=== PATIENT | male | born 1965 | race Caucasian/White ===

== ENCOUNTER 2020-05-03 18:26 | Inpatient (IN) ==
[2020-05-03] MEDS ORDERED: SODIUM CHLORIDE 0.9% 1,000 ML IV STA (18:52)
[2020-05-03] MEDS ORDERED: ALUM/MAG/SIMETH/LIDO VISC 1:1 30 ML BOTTLE PO ONE (19:22)
[2020-05-03] MEDS ORDERED: ALUM/MAG/SIMETH/LIDO VISC 1:1 30 ML BOTTLE PO STA (19:30)
[2020-05-03 19:40] LABS: Basophils # 0.1 10*3/uL (0.0-0.2); Basophils % 0.4 % (0.0-0.8); Eosinophils # 0.1 10*3/uL (0.0-0.87); Eosinophils % 0.7 % (0.00-10.9); Hematocrit 49.1 VOL% (42.0-52.0); Hemoglobin 15.4 GM/DL (14.0-18.0); Immature Granulocytes % 4.5 %; Immature Granulocytes Absolute 0.79 #; Lymphocytes # 1.5 10*3/uL (1.4-4.0); Lymphocytes % 8.3 % (21.2-54.2); Mean Corpuscular HGB Conc 31.4 GM/DL (32-36); Mean Corpuscular Volume 80.6 FL (87-102); Mean Platelet Volume 8.7 FL (9.6-12.0); Monocytes % 8.3 % (1.7-12.7); NRBC # 0.02 10*3/uL; Neutrophils % 77.8 % (38.7-73.9); Platelet Count 188 T/CUMM (130-400); Red Blood Count 6.09 MC/CUMM (3.8-5.5); Red Cell Distribution Width 17.5 % (9.3-17.3); White Blood Count 17.8 T/CUMM (4-12)
[2020-05-03 19:53] LABS: Albumin 2.8 G/DL (3.4-5.0); Bilirubin,Total 0.7 MG/DL (0.2-1.0); Calcium 8.6 MG/DL (8.5-10.1); Osmolality,Calculated 277.8 MOS/KG (273-304); Total Protein 6.2 G/DL (6.4-8.3)
[2020-05-03] MEDS ORDERED: KETOROLAC 30 MG/1 ML VIAL ONE (20:29)
[2020-05-03] MEDS ORDERED: KETOROLAC 30 MG/1 ML VIAL IV STA (20:32)
[2020-05-03] MEDS: SODIUM CHLORIDE 0.9% 1,000 ML IV SCH (22:18)
[2020-05-03] MEDS: ENOXAPARIN 40 MG/0.4 ML SYRINGE SUBCUT SCH (22:18)
[2020-05-03] MEDS: DOCUSATE SODIUM 100 MG CAPSULE PO SCH (22:18)
[2020-05-03 23:43] LABS: Eosinophils 1 % (0-10); Lymphocytes 18 % (20-55); Segmented Neutrophils 80 % (50-85); Total Cells Counted 100
[2020-05-03 23:44] LABS: Reactive Lymphocytes Slight
[2020-05-03 23:45] LABS: Microcytosis Slight; Platelet Estimate Decreased; Polychromasia Slight
[2020-05-04] MEDS ORDERED: KETOROLAC 15 MG/1 ML VIAL IV SCH (04:30)
[2020-05-04] MEDS: SODIUM CHLORIDE 0.9% 1,000 ML IV SCH ×3 (06:03→22:25)
[2020-05-04 06:19] LABS: Basophils # 0.1 10*3/uL (0.0-0.2); Basophils % 0.9 % (0.0-0.8); Eosinophils # 0.2 10*3/uL (0.0-0.87); Eosinophils % 1.2 % (0.00-10.9); Hematocrit 48.4 VOL% (42.0-52.0); Immature Granulocytes % 4.4 %; Immature Granulocytes Absolute 0.54 #; Lymphocytes # 1.4 10*3/uL (1.4-4.0); Lymphocytes % 11.4 % (21.2-54.2); Mean Corpuscular Volume 81.6 FL (87-102); Mean Platelet Volume 9.9 FL (9.6-12.0); Monocytes % 10.3 % (1.7-12.7); NRBC # 0.02 10*3/uL; Neutrophils % 71.8 % (38.7-73.9); Platelet Count 153 T/CUMM (130-400); Red Blood Count 5.93 MC/CUMM (3.8-5.5); Red Cell Distribution Width 17.2 % (9.3-17.3); White Blood Count 12.2 T/CUMM (4-12)
[2020-05-04 06:51] LABS: Albumin 2.3 G/DL (3.4-5.0); Calcium 8.1 MG/DL (8.5-10.1); Osmolality,Calculated 275.8 MOS/KG (273-304); Total Protein 5.5 G/DL (6.4-8.3)
[2020-05-04] MEDS ORDERED: ZALEPLON 5 MG CAPSULE PO PRN (08:17)
[2020-05-04] MEDS: LOSARTAN 50 MG TABLET PO SCH (08:30)
[2020-05-04] MEDS: oxyCODONE/ACETAMINOPHEN 5-325 MG TABLET PO PRN ×2 (08:30→20:13)
[2020-05-04] MEDS: PANTOPRAZOLE 40 MG TABLET PO SCH (08:30)
[2020-05-04] MEDS: DOCUSATE SODIUM 100 MG CAPSULE PO SCH ×2 (08:30→20:13)
[2020-05-04] MEDS: ACETAMINOPHEN 325 MG TABLET PO PRN ×2 (08:30→18:40)
[2020-05-04 08:36] LABS: Band Neutrophils 2 % (0-10); Eosinophils 3 % (0-10); Lymphocytes 10 % (20-55); Metamyelocytes 3 %; Platelet Estimate Normal; Segmented Neutrophils 71 % (50-85); Total Cells Counted 100
[2020-05-04 08:37] LABS: Toxic Granulation 1+
[2020-05-04] MEDS ORDERED: INFLUENZA VIRUS VACCINE 0.5 ML SYRINGE IM ONE (09:00)
[2020-05-04] MEDS: DEXTROMETHORPHAN ER 6 MG/ML 90 ML/BOTTLE PO PRN ×2 (09:53→20:13)
[2020-05-04] MEDS: ASPIRIN EC 81 MG TABLET PO SCH (10:25)
[2020-05-04] MEDS: MORPHINE 4 MG/1 ML VIAL IV PRN ×2 (10:25→18:40)
[2020-05-04] MEDS: METOPROLOL TARTRATE 25 MG TABLET PO SCH ×2 (12:13→20:13)
[2020-05-04] MEDS: ONDANSETRON 4 MG/2 ML VIAL IV PRN (18:40)
[2020-05-04] MEDS: ENOXAPARIN 40 MG/0.4 ML SYRINGE SUBCUT SCH (20:13)
[2020-05-05] MEDS: MORPHINE 4 MG/1 ML VIAL IV PRN ×2 (00:12→04:30)
[2020-05-05] MEDS: ONDANSETRON 4 MG/2 ML VIAL IV PRN (00:42)
[2020-05-05] MEDS: oxyCODONE/ACETAMINOPHEN 5-325 MG TABLET PO PRN (03:14)
[2020-05-05 05:58] LABS: Calcium 8.5 MG/DL (8.5-10.1); Osmolality,Calculated 283.4 MOS/KG (273-304)
[2020-05-05 07:05] LABS: Basophils # 0.1 10*3/uL (0.0-0.2); Eosinophils # 0.3 10*3/uL (0.0-0.87); Eosinophils % 3.2 % (0.00-10.9); Hematocrit 47.4 VOL% (42.0-52.0); Hemoglobin 14.5 GM/DL (14.0-18.0); Immature Granulocytes % 4.8 %; Immature Granulocytes Absolute 0.42 #; Lymphocytes # 1.5 10*3/uL (1.4-4.0); Mean Corpuscular HGB Conc 30.6 GM/DL (32-36); Mean Corpuscular Volume 83.3 FL (87-102); Mean Platelet Volume 8.9 FL (9.6-12.0); Monocytes % 11.4 % (1.7-12.7); Neutrophils % 62.6 % (38.7-73.9); Platelet Count 172 T/CUMM (130-400); Red Blood Count 5.69 MC/CUMM (3.8-5.5); Red Cell Distribution Width 17.6 % (9.3-17.3); White Blood Count 8.8 T/CUMM (4-12)
[2020-05-05] MEDS: PANTOPRAZOLE 40 MG TABLET PO SCH (08:13)
[2020-05-05] MEDS: DOCUSATE SODIUM 100 MG CAPSULE PO SCH (08:13)
[2020-05-05] MEDS: ASPIRIN EC 81 MG TABLET PO SCH (08:13)
[2020-05-05] MEDS: METOPROLOL TARTRATE 25 MG TABLET PO SCH (08:14)
[2020-05-05] MEDS: LOSARTAN 50 MG TABLET PO SCH (08:14)
[2020-05-05] MEDS: ACETAMINOPHEN 325 MG TABLET PO PRN (08:14)
[2020-05-05 11:40] VITALS: BP 121/78
== END 2020-05-05 11:48 | disposition home or self-care (01) | DRG 177 ==
LOC: N.ED 18:26 → N.EDINP 20:48 → N.2E 21:45
PROVIDERS: ADMIT Family Medicine; ATTEND Family Medicine

== ENCOUNTER 2021-09-02 19:46 | Inpatient (IN) ==
[2021-09-02] MEDS ORDERED: methylPREDNISolone SOD SUC 125 MG/2 ML VIAL IV STA (20:20)
[2021-09-02] MEDS ORDERED: HYDROmorphone 1 MG/1 ML SYRINGE IV STA ×2 (20:20→22:14)
[2021-09-02] MEDS ORDERED: METHOCARBAMOL 1,000 MG/10 ML VIAL IV STA (20:20)
[2021-09-02] MEDS ORDERED: KETOROLAC 30 MG/1 ML VIAL IV STA (20:20)
[2021-09-02] MEDS ORDERED: ONDANSETRON 4 MG/2 ML VIAL IV STA (20:20)
[2021-09-02] MEDS ORDERED: FUROSEMIDE 100 MG/10 ML VIAL IV STA (20:20)
[2021-09-02] MEDS ORDERED: ALBUTEROL/IPRATROPIUM 3 ML NEB RESP TX STA (20:20)
[2021-09-02 21:20] LABS: Basophils # 0.1 10*3/uL (0.0-0.2); Basophils % 0.5 % (0.0-0.8); Eosinophils % 0.1 % (0.00-10.9); Hematocrit 44.1 VOL% (42.0-52.0); Hemoglobin 14.1 GM/DL (14.0-18.0); Immature Granulocytes % 4.4 %; Immature Granulocytes Absolute 0.76 #; Lymphocytes # 1.7 10*3/uL (1.4-4.0); Lymphocytes % 9.6 % (21.2-54.2); Mean Corpuscular Volume 88.7 FL (87-102); Mean Platelet Volume 9.5 FL (9.6-12.0); Monocytes # 1.6 10*3/uL (0.11-0.8); Monocytes % 9.5 % (1.7-12.7); NRBC # 0.03 10*3/uL; Neutrophils % 75.9 % (38.7-73.9); Platelet Count 243 T/CUMM (130-400); Red Blood Count 4.97 MC/CUMM (3.8-5.5); Red Cell Distribution Width 14.1 % (9.3-17.3); White Blood Count 17.2 T/CUMM (4-12)
[2021-09-02 21:29] LABS: Bilirubin,Urine Negative (Negative); Blood, Urine Negative (Negative); Glucose,Urine (UA) Negative (Negative); Ketones,Urine Negative (Negative); Nitrite,Urine Negative (Negative); Protein,Urine Negative (Negative); Urine Appearance Clear (Clear); Urine Color Yellow (Yellow); Urine Urobilinogen 0.2 eU/dL (<2.0); Urine pH 6.5 (4.5-8.0)
[2021-09-02 21:44] LABS: Alanine Aminotransferase 39 U/L (16-61); Albumin 3.3 G/DL (3.4-5.0); Alkaline Phosphatase 58 U/L (45-117); Aspartate Amino Transferase 25 U/L (0-37); Blood Urea Nitrogen 40 MG/DL (7-18); Calcium 8.9 MG/DL (8.5-10.1); Carbon Dioxide 27 MMOL/L (21-32); Chloride 107 MMOL/L (98-107); Glucose 113 MG/DL (74-106); Potassium 4.1 MMOL/L (3.5-5.1); Sodium 143 MMOL/L (136-145)
[2021-09-02 21:45] LABS: Band Neutrophils 1 % (0-10); Lymphocytes 13 % (20-55); Myelocytes 1 %; Total Cells Counted 100
[2021-09-02 21:47] LABS: Platelet Estimate Increased; Polychromasia Slight
[2021-09-02] MEDS ORDERED: SODIUM CHLORIDE 0.9% 1,000 ML IV STA (22:06)
[2021-09-02] MEDS ORDERED: MAGNESIUM SULF RIDER 2 GM/50 ML PREMIX IV STA (22:06)
[2021-09-02] MEDS ORDERED: ACETAMINOPHEN 325 MG TABLET PO PRN (23:44)
[2021-09-03] MEDS: ENOXAPARIN 40 MG/0.4 ML SYRINGE SUBCUT SCH (00:30)
[2021-09-03] MEDS: HYDROmorphone 1 MG/1 ML SYRINGE IV PRN ×5 (00:34→15:52)
[2021-09-03] MEDS: SODIUM CHLORIDE 0.9% 1,000 ML IV SCH ×3 (00:34→15:53)
[2021-09-03] MEDS: ALBUTEROL/IPRATROPIUM 3 ML NEB RESP TX SCH ×7 (00:41→23:05)
[2021-09-03] MEDS: methylPREDNISolone SOD SUC 40 MG/1 ML VIAL IV SCH ×3 (04:05→21:03)
[2021-09-03 05:06] LABS: Basophils # 0.1 10*3/uL (0.0-0.2); Basophils % 0.5 % (0.0-0.8); Hemoglobin 14.2 GM/DL (14.0-18.0); Immature Granulocytes Absolute 0.71 #; Lymphocytes # 1.3 10*3/uL (1.4-4.0); Lymphocytes % 7.4 % (21.2-54.2); Mean Corpuscular HGB Conc 32.3 GM/DL (32-36); Mean Corpuscular Volume 89.1 FL (87-102); Mean Platelet Volume 9.3 FL (9.6-12.0); Monocytes # 0.5 10*3/uL (0.11-0.8); Monocytes % 2.7 % (1.7-12.7); Neutrophils % 85.4 % (38.7-73.9); Platelet Count 226 T/CUMM (130-400); Red Blood Count 4.94 MC/CUMM (3.8-5.5); Red Cell Distribution Width 14.3 % (9.3-17.3); White Blood Count 17.7 T/CUMM (4-12)
[2021-09-03 05:25] LABS: Band Neutrophils 1 % (0-10); Lymphocytes 5 % (20-55); Total Cells Counted 100
[2021-09-03 05:26] LABS: Platelet Estimate Adequate
[2021-09-03 05:45] LABS: Albumin 3.3 G/DL (3.4-5.0); Bilirubin,Total 0.6 MG/DL (0.20-1.00); Calcium 8.5 MG/DL (8.5-10.1); Osmolality,Calculated 295.3 MOS/KG (273-304); Potassium 4.5 MMOL/L (3.5-5.1); Risk Ratio 4.53; Total Protein 6.5 G/DL (6.4-8.2); VLDL Cholesterol 24.6 MG/DL
[2021-09-03] MEDS ORDERED: TEMAZEPAM 15 MG CAPSULE PO SCH (09:00)
[2021-09-03] MEDS ORDERED: PANTOPRAZOLE 40 MG TABLET PO SCH (09:00)
[2021-09-03] MEDS: ASPIRIN EC 81 MG TABLET PO SCH (09:43)
[2021-09-03] MEDS: SPIRONOLACTONE 25 MG TABLET PO SCH (09:44)
[2021-09-03] MEDS: DICLOFENAC SODIUM 75 MG TABLET PO SCH ×2 (09:44→21:04)
[2021-09-03] MEDS: OMEPRAZOLE ODT 20 MG TABLET PO SCH (09:45)
[2021-09-03] MEDS: DOCUSATE SODIUM 100 MG CAPSULE PO SCH ×2 (09:46→21:04)
[2021-09-03] MEDS: OLMESARTAN 20 MG TABLET PO SCH (09:46)
[2021-09-03] MEDS: MONTELUKAST 10 MG TABLET PO SCH (09:46)
[2021-09-03] MEDS: CHLORTHALIDONE 25 MG TABLET PO SCH (09:46)
[2021-09-03] MEDS: amLODIPine 5 MG TABLET PO SCH (09:46)
[2021-09-03] MEDS: BACLOFEN 10 MG TABLET PO SCH ×3 (09:47→21:04)
[2021-09-03] MEDS ORDERED: TRIAMCINOLONE ACETONIDE 40 MG/1 ML VIAL MISC INJ ONE (12:36)
[2021-09-03] MEDS ORDERED: ROPIVACAINE 0.5% 30 ML VIAL NERVEBLOCK ONE (12:38)
[2021-09-03] MEDS: ONDANSETRON 4 MG/2 ML VIAL IV PRN ×2 (15:58→21:03)
[2021-09-03] MEDS ORDERED: BUPIVACAINE 0.5% 50 ML VIAL MISC INJ ONE (16:28)
[2021-09-03] MEDS ORDERED: KETOROLAC 30 MG/1 ML VIAL IM ONE (16:29)
[2021-09-03] MEDS ORDERED: NALOXONE 0.4 MG/ML VIAL IV PRN (17:28)
[2021-09-03] MEDS: HYDROmorphone PCA 30 MG/30 ML SYRINGE IV SCH (19:20)
[2021-09-04] MEDS: ENOXAPARIN 40 MG/0.4 ML SYRINGE SUBCUT SCH (01:38)
[2021-09-04] MEDS: SODIUM CHLORIDE 0.9% 1,000 ML IV SCH ×3 (01:38→20:12)
[2021-09-04] MEDS: ALBUTEROL/IPRATROPIUM 3 ML NEB RESP TX SCH ×5 (03:58→19:58)
[2021-09-04] MEDS: methylPREDNISolone SOD SUC 40 MG/1 ML VIAL IV SCH ×3 (05:09→16:17)
[2021-09-04 05:17] LABS: Basophils # 0.1 10*3/uL (0.0-0.2); Basophils % 0.3 % (0.0-0.8); Hematocrit 46.7 VOL% (42.0-52.0); Hemoglobin 14.6 GM/DL (14.0-18.0); Immature Granulocytes % 4.5 %; Immature Granulocytes Absolute 1.25 #; Lymphocytes # 1.4 10*3/uL (1.4-4.0); Lymphocytes % 4.9 % (21.2-54.2); Mean Corpuscular HGB Conc 31.3 GM/DL (32-36); Mean Corpuscular Volume 91.6 FL (87-102); Mean Platelet Volume 9.2 FL (9.6-12.0); Monocytes # 2.3 10*3/uL (0.11-0.8); Monocytes % 8.2 % (1.7-12.7); NRBC # 0.02 10*3/uL; Neutrophils % 82.1 % (38.7-73.9); Platelet Count 326 T/CUMM (130-400); Red Cell Distribution Width 14.7 % (9.3-17.3); White Blood Count 27.8 T/CUMM (4-12)
[2021-09-04 05:36] LABS: Band Neutrophils 1 % (0-10); Lymphocytes 7 % (20-55); Platelet Estimate Adequate; Total Cells Counted 100
[2021-09-04 05:43] LABS: Alanine Aminotransferase 39 U/L (16-61); Albumin 3.5 G/DL (3.4-5.0); Alkaline Phosphatase 48 U/L (45-117); Aspartate Amino Transferase 18 U/L (0-37); Blood Urea Nitrogen 60 MG/DL (7-18); Calcium 8.1 MG/DL (8.5-10.1); Carbon Dioxide 26 MMOL/L (21-32); Chloride 107 MMOL/L (98-107); Glucose 144 MG/DL (74-106); Osmolality,Calculated 296.5 MOS/KG (273-304); Potassium 4.6 MMOL/L (3.5-5.1); Sodium 139 MMOL/L (136-145); Total Protein 6.5 G/DL (6.4-8.2)
[2021-09-04] MEDS: PROMETHAZINE 25 MG/1 ML VIAL IM PRN (09:01)
[2021-09-04] MEDS: SPIRONOLACTONE 25 MG TABLET PO SCH (09:02)
[2021-09-04] MEDS: OMEPRAZOLE ODT 20 MG TABLET PO SCH (09:05)
[2021-09-04] MEDS: DOCUSATE SODIUM 100 MG CAPSULE PO SCH ×2 (09:06→20:41)
[2021-09-04] MEDS: amLODIPine 5 MG TABLET PO SCH (09:06)
[2021-09-04] MEDS: OLMESARTAN 20 MG TABLET PO SCH (09:06)
[2021-09-04] MEDS: BACLOFEN 10 MG TABLET PO SCH ×3 (09:06→20:41)
[2021-09-04] MEDS: MONTELUKAST 10 MG TABLET PO SCH (09:06)
[2021-09-04] MEDS: CHLORTHALIDONE 25 MG TABLET PO SCH (09:06)
[2021-09-04] MEDS: ASPIRIN EC 81 MG TABLET PO SCH (09:06)
[2021-09-04] MEDS: DICLOFENAC SODIUM 75 MG TABLET PO SCH (09:07)
[2021-09-04] MEDS: LIDOCAINE 5% PATCH TRANSDERM SCH (09:08)
[2021-09-04] MEDS ORDERED: PANTOPRAZOLE 40 MG VIAL IV ONE (17:37)
[2021-09-04] MEDS: PANTOPRAZOLE 40 MG VIAL IV SCH (17:41)
[2021-09-04] MEDS: TEMAZEPAM 15 MG CAPSULE PO SCH (20:41)
[2021-09-04] MEDS: ONDANSETRON 4 MG/2 ML VIAL IV PRN (21:10)
[2021-09-05] MEDS: ENOXAPARIN 40 MG/0.4 ML SYRINGE SUBCUT SCH (00:06)
[2021-09-05] MEDS: methylPREDNISolone SOD SUC 40 MG/1 ML VIAL IV SCH ×3 (00:06→17:00)
[2021-09-05] MEDS: ALBUTEROL/IPRATROPIUM 3 ML NEB RESP TX SCH ×7 (00:29→23:45)
[2021-09-05] MEDS: SODIUM CHLORIDE 0.9% 1,000 ML IV SCH ×3 (04:28→16:52)
[2021-09-05 04:41] LABS: Basophils % 0.2 % (0.0-0.8); Hematocrit 39.5 VOL% (42.0-52.0); Hemoglobin 12.4 GM/DL (14.0-18.0); Immature Granulocytes % 3.1 %; Immature Granulocytes Absolute 0.48 #; Lymphocytes # 0.5 10*3/uL (1.4-4.0); Lymphocytes % 3.2 % (21.2-54.2); Mean Corpuscular HGB Conc 31.4 GM/DL (32-36); Mean Corpuscular Volume 91.9 FL (87-102); Mean Platelet Volume 9.3 FL (9.6-12.0); Monocytes # 0.5 10*3/uL (0.11-0.8); Monocytes % 3.2 % (1.7-12.7); NRBC # 0.02 10*3/uL; Neutrophils % 90.3 % (38.7-73.9); Platelet Count 228 T/CUMM (130-400); Red Cell Distribution Width 14.8 % (9.3-17.3); White Blood Count 15.5 T/CUMM (4-12)
[2021-09-05 05:05] LABS: Lymphocytes 4 % (20-55); Platelet Estimate Normal; Total Cells Counted 100
[2021-09-05 05:13] LABS: Albumin 2.8 G/DL (3.4-5.0); Bilirubin,Total 0.5 MG/DL (0.20-1.00); Calcium 7.5 MG/DL (8.5-10.1); Osmolality,Calculated 304.8 MOS/KG (273-304); Potassium 4.9 MMOL/L (3.5-5.1); Total Protein 5.4 G/DL (6.4-8.2)
[2021-09-05] MEDS: ONDANSETRON 4 MG/2 ML VIAL IV PRN (07:40)
[2021-09-05] MEDS ORDERED: GLUCAGON 1 MG VIAL IM PRN (09:06)
[2021-09-05] MEDS ORDERED: DEXTROSE 10% 250 ML BAG IV PRN (09:10)
[2021-09-05] MEDS ORDERED: DEXTROMETHORPHAN ER 6 MG/ML 90 ML/BOTTLE PO PRN (09:16)
[2021-09-05] MEDS: PANTOPRAZOLE 40 MG VIAL IV SCH (09:20)
[2021-09-05] MEDS: MONTELUKAST 10 MG TABLET PO SCH (09:21)
[2021-09-05] MEDS: ASPIRIN EC 81 MG TABLET PO SCH (09:21)
[2021-09-05] MEDS: DOCUSATE SODIUM 100 MG CAPSULE PO SCH ×2 (09:21→21:54)
[2021-09-05] MEDS: LIDOCAINE 5% PATCH TRANSDERM SCH (09:23)
[2021-09-05] MEDS: CHLORTHALIDONE 25 MG TABLET PO SCH (09:23)
[2021-09-05] MEDS: BACLOFEN 10 MG TABLET PO SCH ×3 (09:24→22:44)
[2021-09-05] MEDS: amLODIPine 5 MG TABLET PO SCH (09:30)
[2021-09-05] MEDS: MEROPENEM 500 MG in SODIUM CHLORIDE 0.9% 100 ML IV SCH ×2 (11:30→18:28)
[2021-09-05] MEDS: INSULIN REGULAR 100 UNIT/ML SUBCUT SCH ×3 (12:30→22:44)
[2021-09-05] MEDS: PROMETHAZINE 25 MG/1 ML VIAL IM PRN (21:53)
[2021-09-05] MEDS: TEMAZEPAM 15 MG CAPSULE PO SCH (22:00)
[2021-09-05] MEDS: SENNA 8.6 MG TABLET PO SCH (22:00)
[2021-09-06] MEDS: methylPREDNISolone SOD SUC 40 MG/1 ML VIAL IV SCH ×3 (00:40→17:35)
[2021-09-06] MEDS: ENOXAPARIN 40 MG/0.4 ML SYRINGE SUBCUT SCH (00:41)
[2021-09-06] MEDS: MEROPENEM 500 MG in SODIUM CHLORIDE 0.9% 100 ML IV SCH ×3 (01:29→17:35)
[2021-09-06] MEDS: SODIUM CHLORIDE 0.9% 1,000 ML IV SCH ×3 (01:30→17:34)
[2021-09-06] MEDS: ALBUTEROL/IPRATROPIUM 3 ML NEB RESP TX SCH ×6 (03:45→23:45)
[2021-09-06 05:36] LABS: Basophils % 0.3 % (0.0-0.8); Eosinophils # 0.1 10*3/uL (0.0-0.87); Eosinophils % 0.4 % (0.00-10.9); Hematocrit 41.6 VOL% (42.0-52.0); Hemoglobin 12.9 GM/DL (14.0-18.0); Immature Granulocytes % 4.5 %; Lymphocytes # 0.8 10*3/uL (1.4-4.0); Mean Corpuscular Volume 91.8 FL (87-102); Mean Platelet Volume 9.1 FL (9.6-12.0); Monocytes # 1.1 10*3/uL (0.11-0.8); Monocytes % 7.4 % (1.7-12.7); NRBC # 0.02 10*3/uL; Neutrophils % 82.4 % (38.7-73.9); Platelet Count 247 T/CUMM (130-400); Red Blood Count 4.53 MC/CUMM (3.8-5.5); Red Cell Distribution Width 15.1 % (9.3-17.3); White Blood Count 15.5 T/CUMM (4-12)
[2021-09-06 05:53] LABS: Phosphorous 2.7 MG/DL (2.5-4.9); Uric Acid 8.8 MG/DL (3.5-7.2)
[2021-09-06 05:54] LABS: Calcium 8.2 MG/DL (8.5-10.1); Potassium 4.4 MMOL/L (3.5-5.1)
[2021-09-06 06:33] LABS: Band Neutrophils 2 % (0-10); Lymphocytes 6 % (20-55); Platelet Estimate Normal; Total Cells Counted 100
[2021-09-06 06:42] LABS: Albumin 2.9 G/DL (3.4-5.0); Bilirubin,Direct 0.13 MG/DL (0.0-0.20); Bilirubin,Indirect 0.7 MG/DL (0.0-1.0); Bilirubin,Total 0.8 MG/DL (0.20-1.00); Total Protein 5.6 G/DL (6.4-8.2)
[2021-09-06] MEDS ORDERED: LACTULOSE 20 GM/30 ML UDCUP PO ONE (07:42)
[2021-09-06] MEDS: INSULIN REGULAR 100 UNIT/ML SUBCUT SCH ×3 (07:45→17:34)
[2021-09-06] MEDS: HYDROmorphone PCA 30 MG/30 ML SYRINGE IV SCH ×2 (07:45→11:05)
[2021-09-06] MEDS: MONTELUKAST 10 MG TABLET PO SCH (09:35)
[2021-09-06] MEDS: BACLOFEN 10 MG TABLET PO SCH ×3 (09:35→21:50)
[2021-09-06] MEDS: LIDOCAINE 5% PATCH TRANSDERM SCH (09:35)
[2021-09-06] MEDS: PANTOPRAZOLE 40 MG VIAL IV SCH (09:35)
[2021-09-06] MEDS: amLODIPine 5 MG TABLET PO SCH (09:35)
[2021-09-06] MEDS: DOCUSATE SODIUM 100 MG CAPSULE PO SCH ×2 (09:35→21:50)
[2021-09-06] MEDS: ASPIRIN EC 81 MG TABLET PO SCH (09:35)
[2021-09-06] MEDS: SENNA 8.6 MG TABLET PO SCH ×2 (09:35→21:52)
[2021-09-06 17:44] LABS: Microalbum Ur Quant Random 10.7 MG/L (0-20)
[2021-09-06] MEDS: TEMAZEPAM 15 MG CAPSULE PO SCH (21:53)
[2021-09-07] MEDS: INSULIN REGULAR 100 UNIT/ML SUBCUT SCH ×4 (00:24→23:38)
[2021-09-07] MEDS: MEROPENEM 500 MG in SODIUM CHLORIDE 0.9% 100 ML IV SCH ×5 (00:26→23:40)
[2021-09-07] MEDS: methylPREDNISolone SOD SUC 40 MG/1 ML VIAL IV SCH ×3 (01:00→18:30)
[2021-09-07] MEDS: SODIUM CHLORIDE 0.9% 1,000 ML IV SCH ×3 (01:34→18:05)
[2021-09-07] MEDS: ALBUTEROL/IPRATROPIUM 3 ML NEB RESP TX SCH ×6 (03:30→22:57)
[2021-09-07 07:20] LABS: Total Protein (Chem) 5.9 G/DL (6.4-8.3)
[2021-09-07 08:54] LABS: Albumin (SPE) 3.8 G/DL (3.2-5.3); Alpha 1 (SPE) 0.2 G/DL (0.1-0.4); Alpha 1 (SPE) Rel % 2.9 %; Alpha 2 (SPE) 0.8 G/DL (0.4-1.0); Alpha 2 (SPE) Rel % 14.2 %; Beta (SPE) 0.8 G/DL (0.5-1.1); Beta (SPE) Rel % 13.5 %; Gamma (SPE) 0.3 G/DL (0.7-1.7); Gamma (SPE) Rel % 5.4 %
[2021-09-07] MEDS: amLODIPine 5 MG TABLET PO SCH (09:45)
[2021-09-07] MEDS: PANTOPRAZOLE 40 MG VIAL IV SCH (10:10)
[2021-09-07] MEDS: BACLOFEN 10 MG TABLET PO SCH ×3 (10:11→21:18)
[2021-09-07] MEDS: ASPIRIN EC 81 MG TABLET PO SCH (10:11)
[2021-09-07] MEDS: DOCUSATE SODIUM 100 MG CAPSULE PO SCH ×2 (10:11→21:18)
[2021-09-07] MEDS: MONTELUKAST 10 MG TABLET PO SCH (10:12)
[2021-09-07] MEDS: SENNA 8.6 MG TABLET PO SCH ×2 (10:12→21:18)
[2021-09-07] MEDS: POLYETHYLENE GLYCOL POWDER 17 GM PACK PO PRN (10:18)
[2021-09-07] MEDS: LACTATED RINGERS 1,000 ML IV SCH (12:45)
[2021-09-07] MEDS ORDERED: LIDOCAINE 2% 5 ML VIAL ONE (12:53)
[2021-09-07] MEDS ORDERED: propofoL 200 MG/20 ML VIAL IV ONE (12:53)
[2021-09-07] MEDS ORDERED: PHENYLEPHRINE 1 MG/10 ML SYRINGE IV ONE (13:02)
[2021-09-07] MEDS: LIDOCAINE 5% PATCH TRANSDERM SCH (13:22)
[2021-09-07] MEDS: TEMAZEPAM 15 MG CAPSULE PO SCH (21:18)
[2021-09-07] MEDS: PROMETHAZINE 25 MG/1 ML VIAL IM PRN (21:18)
[2021-09-08] MEDS: ENOXAPARIN 40 MG/0.4 ML SYRINGE SUBCUT SCH (00:12)
[2021-09-08] MEDS: methylPREDNISolone SOD SUC 40 MG/1 ML VIAL IV SCH ×3 (01:26→20:42)
[2021-09-08] MEDS: ALBUTEROL/IPRATROPIUM 3 ML NEB RESP TX SCH ×6 (03:36→23:57)
[2021-09-08 05:20] LABS: Basophils # 0.1 10*3/uL (0.0-0.2); Basophils % 0.3 % (0.0-0.8); Hematocrit 41.3 VOL% (42.0-52.0); Hemoglobin 12.7 GM/DL (14.0-18.0); Immature Granulocytes % 4.1 %; Immature Granulocytes Absolute 0.61 #; Lymphocytes # 0.9 10*3/uL (1.4-4.0); Mean Corpuscular HGB Conc 30.8 GM/DL (32-36); Mean Platelet Volume 8.9 FL (9.6-12.0); Monocytes # 0.9 10*3/uL (0.11-0.8); Neutrophils % 83.6 % (38.7-73.9); Platelet Count 204 T/CUMM (130-400); Red Blood Count 4.44 MC/CUMM (3.8-5.5); Red Cell Distribution Width 14.5 % (9.3-17.3); White Blood Count 14.8 T/CUMM (4-12)
[2021-09-08 05:45] LABS: Band Neutrophils 1 % (0-10); Lymphocytes 4 % (20-55); Metamyelocytes 1 %; Promyelocytes 1 %; Total Cells Counted 100
[2021-09-08 05:46] LABS: Microcytosis Slight
[2021-09-08 06:15] LABS: Alanine Aminotransferase 56 U/L (16-61); Albumin 2.5 G/DL (3.4-5.0); Alkaline Phosphatase 40 U/L (45-117); Aspartate Amino Transferase 21 U/L (0-37); Blood Urea Nitrogen 29 MG/DL (7-18); Calcium 8.4 MG/DL (8.5-10.1); Carbon Dioxide 31 MMOL/L (21-32); Chloride 106 MMOL/L (98-107); Glucose 170 MG/DL (74-106); Osmolality,Calculated 288.4 MOS/KG (273-304); Potassium 5.4 MMOL/L (3.5-5.1); Sodium 140 MMOL/L (136-145); Total Protein 5.2 G/DL (6.4-8.2)
[2021-09-08 06:29] LABS: Sedimentation Rate-Westergren 6 MM/HR (0-20)
[2021-09-08] MEDS: SODIUM CHLORIDE 0.9% 1,000 ML IV SCH ×3 (06:44→20:00)
[2021-09-08] MEDS: MEROPENEM 500 MG in SODIUM CHLORIDE 0.9% 100 ML IV SCH ×3 (06:45→20:41)
[2021-09-08] MEDS: MONTELUKAST 10 MG TABLET PO SCH (10:00)
[2021-09-08] MEDS: PANTOPRAZOLE 40 MG VIAL IV SCH (10:00)
[2021-09-08] MEDS: amLODIPine 5 MG TABLET PO SCH (10:00)
[2021-09-08] MEDS: DOCUSATE SODIUM 100 MG CAPSULE PO SCH ×2 (10:00→20:47)
[2021-09-08] MEDS: SENNA 8.6 MG TABLET PO SCH ×2 (10:00→20:47)
[2021-09-08] MEDS: FLUCONAZOLE 200 MG TABLET PO SCH (10:00)
[2021-09-08] MEDS: BACLOFEN 10 MG TABLET PO SCH ×3 (10:00→20:47)
[2021-09-08] MEDS: ASPIRIN EC 81 MG TABLET PO SCH (10:00)
[2021-09-08] MEDS: INSULIN REGULAR 100 UNIT/ML SUBCUT SCH ×4 (11:13→22:26)
[2021-09-08] MEDS: LIDOCAINE 5% PATCH TRANSDERM SCH (11:16)
[2021-09-08] MEDS: LACTATED RINGERS 1,000 ML IV SCH (15:09)
[2021-09-08] MEDS: HYDROmorphone PCA 30 MG/30 ML SYRINGE IV SCH (17:35)
[2021-09-08] MEDS ORDERED: LACTULOSE 20 GM/30 ML UDCUP PO ONE (19:00)
[2021-09-08] MEDS: TEMAZEPAM 15 MG CAPSULE PO SCH (20:47)
[2021-09-08] MEDS: PROMETHAZINE 25 MG/1 ML VIAL IM PRN (20:47)
[2021-09-08] MEDS: guaiFENesin/CODEINE 5 ML LIQUID PO PRN (20:47)
[2021-09-09] MEDS: ENOXAPARIN 40 MG/0.4 ML SYRINGE SUBCUT SCH ×2 (00:03→23:54)
[2021-09-09] MEDS: methylPREDNISolone SOD SUC 40 MG/1 ML VIAL IV SCH ×3 (01:13→17:20)
[2021-09-09] MEDS: ALBUTEROL/IPRATROPIUM 3 ML NEB RESP TX SCH ×6 (04:50→22:00)
[2021-09-09 06:09] LABS: Basophils # 0.1 10*3/uL (0.0-0.2); Basophils % 0.6 % (0.0-0.8); Hematocrit 40.2 VOL% (42.0-52.0); Hemoglobin 12.7 GM/DL (14.0-18.0); Immature Granulocytes % 4.6 %; Immature Granulocytes Absolute 0.77 #; Lymphocytes # 1.2 10*3/uL (1.4-4.0); Lymphocytes % 7.1 % (21.2-54.2); Mean Corpuscular HGB Conc 31.6 GM/DL (32-36); Mean Platelet Volume 9.2 FL (9.6-12.0); Monocytes # 1.1 10*3/uL (0.11-0.8); Monocytes % 6.4 % (1.7-12.7); Neutrophils % 81.3 % (38.7-73.9); Platelet Count 203 T/CUMM (130-400); Red Blood Count 4.42 MC/CUMM (3.8-5.5); Red Cell Distribution Width 14.5 % (9.3-17.3); White Blood Count 16.8 T/CUMM (4-12)
[2021-09-09 06:30] LABS: Calcium 9.1 MG/DL (8.5-10.1); Osmolality,Calculated 284.5 MOS/KG (273-304); Potassium 4.6 MMOL/L (3.5-5.1)
[2021-09-09 06:35] LABS: Hypochromia Slight; Lymphocytes 6 % (20-55); Nucleated Red Blood Cells 1 (0-5); Platelet Estimate Adequate; Total Cells Counted 100
[2021-09-09] MEDS: MEROPENEM 500 MG in SODIUM CHLORIDE 0.9% 100 ML IV SCH ×5 (07:07→22:54)
[2021-09-09] MEDS: INSULIN REGULAR 100 UNIT/ML SUBCUT SCH ×4 (07:30→23:37)
[2021-09-09] MEDS: SENNA 8.6 MG TABLET PO SCH ×2 (10:09→20:48)
[2021-09-09] MEDS: guaiFENesin/CODEINE 5 ML LIQUID PO PRN ×3 (10:09→20:47)
[2021-09-09] MEDS: BACLOFEN 10 MG TABLET PO SCH ×3 (10:09→20:48)
[2021-09-09] MEDS: ASPIRIN EC 81 MG TABLET PO SCH (10:09)
[2021-09-09] MEDS: FLUCONAZOLE 200 MG TABLET PO SCH (10:09)
[2021-09-09] MEDS: DOCUSATE SODIUM 100 MG CAPSULE PO SCH ×2 (10:09→20:48)
[2021-09-09] MEDS: MONTELUKAST 10 MG TABLET PO SCH (10:10)
[2021-09-09] MEDS: amLODIPine 5 MG TABLET PO SCH (10:10)
[2021-09-09] MEDS: PANTOPRAZOLE 40 MG VIAL IV SCH (10:11)
[2021-09-09] MEDS: LIDOCAINE 5% PATCH TRANSDERM SCH (14:20)
[2021-09-09] MEDS: PROMETHAZINE 25 MG/1 ML VIAL IM PRN (14:20)
[2021-09-09] MEDS: LACTATED RINGERS 1,000 ML IV SCH (14:33)
[2021-09-09] MEDS: SODIUM CHLORIDE 0.9% 1,000 ML IV SCH ×2 (14:37→23:52)
[2021-09-09] MEDS: ONDANSETRON 4 MG/2 ML VIAL IV PRN (17:22)
[2021-09-09] MEDS: TEMAZEPAM 15 MG CAPSULE PO SCH (20:47)
[2021-09-09] MEDS: tiZANidine 4 MG TABLET PO SCH (20:48)
[2021-09-09] MEDS: HYDROmorphone PCA 30 MG/30 ML SYRINGE IV SCH (23:52)
[2021-09-10] MEDS: methylPREDNISolone SOD SUC 40 MG/1 ML VIAL IV SCH ×3 (01:31→16:14)
[2021-09-10] MEDS: ALBUTEROL/IPRATROPIUM 3 ML NEB RESP TX SCH ×6 (03:10→23:30)
[2021-09-10 04:11] LABS: Basophils % 0.1 % (0.0-0.8); Hematocrit 44.4 VOL% (42.0-52.0); Hemoglobin 14.1 GM/DL (14.0-18.0); Immature Granulocytes % 4.8 %; Immature Granulocytes Absolute 1.52 #; Lymphocytes # 1.4 10*3/uL (1.4-4.0); Lymphocytes % 4.5 % (21.2-54.2); Mean Corpuscular HGB Conc 31.8 GM/DL (32-36); Mean Corpuscular Volume 90.8 FL (87-102); Mean Platelet Volume 9.1 FL (9.6-12.0); Monocytes # 1.3 10*3/uL (0.11-0.8); Neutrophils % 86.6 % (38.7-73.9); Platelet Count 281 T/CUMM (130-400); Red Blood Count 4.89 MC/CUMM (3.8-5.5); Red Cell Distribution Width 14.5 % (9.3-17.3); White Blood Count 31.7 T/CUMM (4-12)
[2021-09-10 04:33] LABS: Eosinophils 1 % (0-10); Lymphocytes 4 % (20-55); Platelet Estimate Normal; Total Cells Counted 100
[2021-09-10 04:44] LABS: Calcium 9.5 MG/DL (8.5-10.1); Osmolality,Calculated 281.8 MOS/KG (273-304); Potassium 4.4 MMOL/L (3.5-5.1)
[2021-09-10] MEDS: MEROPENEM 500 MG in SODIUM CHLORIDE 0.9% 100 ML IV SCH ×4 (05:13→22:30)
[2021-09-10] MEDS: guaiFENesin/CODEINE 5 ML LIQUID PO PRN ×3 (06:30→16:13)
[2021-09-10] MEDS: HYDROmorphone PCA 30 MG/30 ML SYRINGE IV SCH ×3 (07:15→16:34)
[2021-09-10] MEDS: SODIUM CHLORIDE 0.9% 1,000 ML IV SCH ×3 (07:44→16:12)
[2021-09-10] MEDS: MONTELUKAST 10 MG TABLET PO SCH (08:38)
[2021-09-10] MEDS: amLODIPine 5 MG TABLET PO SCH (08:38)
[2021-09-10] MEDS: ASPIRIN EC 81 MG TABLET PO SCH (08:38)
[2021-09-10] MEDS: FLUCONAZOLE 200 MG TABLET PO SCH (08:39)
[2021-09-10] MEDS: BACLOFEN 10 MG TABLET PO SCH ×3 (08:39→21:26)
[2021-09-10] MEDS: SENNA 8.6 MG TABLET PO SCH ×2 (08:39→21:26)
[2021-09-10] MEDS: DOCUSATE SODIUM 100 MG CAPSULE PO SCH ×2 (08:41→21:25)
[2021-09-10] MEDS: tiZANidine 4 MG TABLET PO SCH ×2 (08:41→21:25)
[2021-09-10] MEDS: LIDOCAINE 5% PATCH TRANSDERM SCH (08:42)
[2021-09-10] MEDS: PANTOPRAZOLE 40 MG VIAL IV SCH (08:43)
[2021-09-10] MEDS: INSULIN REGULAR 100 UNIT/ML SUBCUT SCH ×5 (08:54→23:15)
[2021-09-10] MEDS: LACTATED RINGERS 1,000 ML IV SCH (12:05)
[2021-09-10] MEDS: ONDANSETRON 4 MG/2 ML VIAL IV PRN ×2 (16:20→23:16)
[2021-09-10] MEDS ORDERED: FUROSEMIDE 40 MG/4 ML VIAL IV ONE (17:35)
[2021-09-10] MEDS ORDERED: SODIUM CHLORIDE 0.9% 1,000 ML IV SCH (17:36)
[2021-09-10] MEDS: PROMETHAZINE 25 MG/1 ML VIAL IM PRN (21:26)
[2021-09-10] MEDS: TEMAZEPAM 15 MG CAPSULE PO SCH (21:26)
[2021-09-10] MEDS ORDERED: METOPROLOL TARTRATE 5 MG/5 ML VIAL IV ONE (22:08)
[2021-09-10 22:48] LABS: CKMB % 0.75 %; High Sensitive Troponin I* 10.2 ng/L (0-78)
[2021-09-11 00:15] LABS: Calcium 8.7 MG/DL (8.5-10.1); Potassium 5.1 MMOL/L (3.5-5.1)
[2021-09-11] MEDS: methylPREDNISolone SOD SUC 40 MG/1 ML VIAL IV SCH ×3 (02:45→15:06)
[2021-09-11] MEDS: ALBUTEROL/IPRATROPIUM 3 ML NEB RESP TX SCH ×6 (03:32→23:32)
[2021-09-11] MEDS: MEROPENEM 500 MG in SODIUM CHLORIDE 0.9% 100 ML IV SCH ×3 (05:10→15:21)
[2021-09-11 05:58] LABS: Calcium 9.1 MG/DL (8.5-10.1); Potassium 5.3 MMOL/L (3.5-5.1)
[2021-09-11 06:14] LABS: Basophils % 0.1 % (0.0-0.8); Hematocrit 33.3 VOL% (42.0-52.0); Immature Granulocytes % 8.3 %; Immature Granulocytes Absolute 4.01 #; Lymphocytes # 2.3 10*3/uL (1.4-4.0); Lymphocytes % 4.8 % (21.2-54.2); Mean Corpuscular HGB Conc 31.2 GM/DL (32-36); Mean Corpuscular Volume 92.5 FL (87-102); Mean Platelet Volume 9.4 FL (9.6-12.0); Monocytes % 6.2 % (1.7-12.7); NRBC # 0.24 10*3/uL; Neutrophils % 80.6 % (38.7-73.9); Red Cell Distribution Width 14.6 % (9.3-17.3)
[2021-09-11 06:18] LABS: Hemoglobin 10.4 GM/DL (14.0-18.0); Platelet Count 342 T/CUMM (130-400); White Blood Count 48.3 T/CUMM (4-12)
[2021-09-11 06:31] LABS: Band Neutrophils 9 % (0-10); Lymphocytes 10 % (20-55); Myelocytes 3 %; Nucleated Red Blood Cells 1 (0-5); Platelet Estimate Normal; Total Cells Counted 100
[2021-09-11 06:32] LABS: Anisocytosis 1+
[2021-09-11 06:33] LABS: Burr Cells Few; Macrocytosis Slight
[2021-09-11] MEDS: BACLOFEN 10 MG TABLET PO SCH ×2 (09:24→15:24)
[2021-09-11] MEDS: INSULIN REGULAR 100 UNIT/ML SUBCUT SCH ×4 (09:59→21:49)
[2021-09-11] MEDS ORDERED: ROPIVACAINE 0.5% 30 ML VIAL ONE (10:03)
[2021-09-11] MEDS ORDERED: BUPIVACAINE 0.5% 50 ML VIAL ONE (10:03)
[2021-09-11] MEDS ORDERED: methylPREDNISolone ACETATE 80 MG/1 ML VIAL ONE (10:04)
[2021-09-11] MEDS ORDERED: DEXMEDETOMIDINE 200 MCG/2 ML VIAL ONE (10:35)
[2021-09-11] MEDS ORDERED: KETAMINE 500 MG/10 ML VIAL ONE (10:35)
[2021-09-11] MEDS ORDERED: fentaNYL 100 MCG/2 ML VIAL ONE (11:05)
[2021-09-11] MEDS ORDERED: propofoL 200 MG/20 ML VIAL IV ONE (11:34)
[2021-09-11] MEDS ORDERED: ALBUMIN 5% 0 GM/0 ML VIAL IV ONE (12:00)
[2021-09-11] MEDS ORDERED: ACETAMINOPHEN INJ 1,000 MG/100 ML VIAL IV ONE ×2 (12:00→12:03)
[2021-09-11] MEDS ORDERED: HYDROmorphone 1 MG/1 ML SYRINGE ONE (12:00)
[2021-09-11] MEDS ORDERED: HYDROmorphone 1 MG/1 ML SYRINGE IV ONE ×2 (12:02→17:30)
[2021-09-11] MEDS ORDERED: GABAPENTIN 400 MG CAPSULE ONE (12:03)
[2021-09-11] MEDS ORDERED: GABAPENTIN 400 MG CAPSULE PO ONE (12:05)
[2021-09-11] MEDS ORDERED: NALOXONE 0.4 MG/ML VIAL IV PRN (12:28)
[2021-09-11] MEDS: ONDANSETRON 4 MG/2 ML VIAL IV PRN (13:03)
[2021-09-11] MEDS ORDERED: SODIUM CHLORIDE 0.9% 500 ML IV ONE ×2 (13:18→13:26)
[2021-09-11] MEDS: SODIUM CHLORIDE 0.9% 1,000 ML IV SCH ×3 (14:24→20:20)
[2021-09-11] MEDS: amLODIPine 5 MG TABLET PO SCH (14:26)
[2021-09-11] MEDS: tiZANidine 4 MG TABLET PO SCH (14:26)
[2021-09-11] MEDS: HYDROmorphone PCA 30 MG/30 ML SYRINGE IV SCH ×2 (14:27→20:20)
[2021-09-11] MEDS ORDERED: SODIUM CHLORIDE 0.9% 1,000 ML IV SCH (14:30)
[2021-09-11] MEDS: DOCUSATE SODIUM 100 MG CAPSULE PO SCH ×2 (15:02→22:06)
[2021-09-11] MEDS: MONTELUKAST 10 MG TABLET PO SCH (15:02)
[2021-09-11] MEDS: FLUCONAZOLE 200 MG TABLET PO SCH (15:03)
[2021-09-11] MEDS: SENNA 8.6 MG TABLET PO SCH ×2 (15:03→22:06)
[2021-09-11] MEDS: ASPIRIN EC 81 MG TABLET PO SCH (15:03)
[2021-09-11] MEDS: LIDOCAINE 5% PATCH TRANSDERM SCH (15:04)
[2021-09-11] MEDS: PANTOPRAZOLE 40 MG VIAL IV SCH (15:08)
[2021-09-11] MEDS: guaiFENesin/CODEINE 5 ML LIQUID PO PRN ×2 (16:56→22:06)
[2021-09-11] MEDS: ALBUMIN 25% 25 GM/100 ML VIAL IV SCH (17:16)
[2021-09-11 18:57] LABS: Hematocrit 24.1 VOL% (42.0-52.0); Hemoglobin 7.9 GM/DL (14.0-18.0)
[2021-09-11] MEDS: DORNASE ALFA 2.5 MG/2.5 ML VIAL RESP TX SCH (19:03)
[2021-09-11] MEDS ORDERED: ENOXAPARIN 40 MG/0.4 ML SYRINGE SUBCUT SCH (21:00)
[2021-09-11 21:57] LABS: RBC,Urine 1 /HPF (0-4)
[2021-09-11 21:58] LABS: Bilirubin,Urine Negative (Negative); Blood, Urine Negative (Negative); Glucose,Urine (UA) Negative (Negative); Ketones,Urine Negative (Negative); Nitrite,Urine Negative (Negative); Protein,Urine Negative (Negative); Urine Appearance Clear (Clear); Urine Color Yellow (Yellow); Urine Urobilinogen 0.2 eU/dL (<2.0)
[2021-09-11] MEDS: AMITRIPTYLINE 50 MG TABLET PO SCH (22:05)
[2021-09-11] MEDS: GABAPENTIN 300 MG CAPSULE PO SCH ×2 (22:05)
[2021-09-11] MEDS: TEMAZEPAM 15 MG CAPSULE PO SCH (22:36)
[2021-09-12] MEDS: MEROPENEM 500 MG in SODIUM CHLORIDE 0.9% 100 ML IV SCH ×4 (00:15→23:17)
[2021-09-12] MEDS: ALBUMIN 25% 25 GM/100 ML VIAL IV SCH ×3 (00:49→16:13)
[2021-09-12] MEDS: SODIUM CHLORIDE 0.9% 1,000 ML IV SCH ×2 (02:55→09:30)
[2021-09-12] MEDS: ALBUTEROL/IPRATROPIUM 3 ML NEB RESP TX SCH ×6 (03:23→23:12)
[2021-09-12 03:46] LABS: Basophils # 0.1 10*3/uL (0.0-0.2); Basophils % 0.2 % (0.0-0.8); Hematocrit 25.8 VOL% (42.0-52.0); Hemoglobin 8.3 GM/DL (14.0-18.0); Immature Granulocytes % 6.7 %; Immature Granulocytes Absolute 1.79 #; Lymphocytes # 1.5 10*3/uL (1.4-4.0); Lymphocytes % 5.4 % (21.2-54.2); Mean Corpuscular HGB Conc 32.2 GM/DL (32-36); Mean Corpuscular Volume 89.6 FL (87-102); Mean Platelet Volume 9.1 FL (9.6-12.0); Monocytes # 1.5 10*3/uL (0.11-0.8); Monocytes % 5.5 % (1.7-12.7); NRBC # 0.06 10*3/uL; Neutrophils % 82.2 % (38.7-73.9); Platelet Count 193 T/CUMM (130-400); Red Blood Count 2.88 MC/CUMM (3.8-5.5); Red Cell Distribution Width 14.4 % (9.3-17.3); White Blood Count 26.7 T/CUMM (4-12)
[2021-09-12 04:08] LABS: Lymphocytes 2 % (20-55); Nucleated Red Blood Cells 1 (0-5); Platelet Estimate Adequate; Total Cells Counted 100
[2021-09-12 04:10] LABS: Albumin 2.9 G/DL (3.4-5.0); Bilirubin,Total 0.9 MG/DL (0.20-1.00); Calcium 8.3 MG/DL (8.5-10.1); Potassium 4.6 MMOL/L (3.5-5.1)
[2021-09-12] MEDS: DORNASE ALFA 2.5 MG/2.5 ML VIAL RESP TX SCH ×2 (07:19→19:15)
[2021-09-12] MEDS: INSULIN REGULAR 100 UNIT/ML SUBCUT SCH ×4 (07:33→21:44)
[2021-09-12 09:18] LABS: PT Patient Result 10.9 SECS (10.5-12.0); Partial Thromboplastin Time 25.1 SECS (23.8-32.1)
[2021-09-12] MEDS: FLUCONAZOLE 200 MG TABLET PO SCH (09:53)
[2021-09-12] MEDS: MONTELUKAST 10 MG TABLET PO SCH (09:53)
[2021-09-12] MEDS: AMITRIPTYLINE 50 MG TABLET PO SCH ×2 (09:53→21:28)
[2021-09-12] MEDS: SENNA 8.6 MG TABLET PO SCH ×2 (09:53→21:28)
[2021-09-12] MEDS: GABAPENTIN 300 MG CAPSULE PO SCH ×2 (09:53→21:28)
[2021-09-12] MEDS: DOCUSATE SODIUM 100 MG CAPSULE PO SCH ×2 (09:53→21:28)
[2021-09-12] MEDS: ASPIRIN EC 81 MG TABLET PO SCH (09:53)
[2021-09-12] MEDS: PANTOPRAZOLE 40 MG VIAL IV SCH (09:57)
[2021-09-12] MEDS: POLYETHYLENE GLYCOL POWDER 17 GM PACK PO PRN (09:57)
[2021-09-12] MEDS: LIDOCAINE 5% PATCH TRANSDERM SCH ×2 (10:00→10:03)
[2021-09-12] MEDS: guaiFENesin/CODEINE 5 ML LIQUID PO PRN ×2 (18:16→22:10)
[2021-09-12] MEDS: HYDROmorphone PCA 30 MG/30 ML SYRINGE IV SCH (19:18)
[2021-09-13] MEDS: ALBUMIN 25% 25 GM/100 ML VIAL IV SCH ×3 (01:02→16:29)
[2021-09-13] MEDS: ALBUTEROL/IPRATROPIUM 3 ML NEB RESP TX SCH ×6 (03:26→22:21)
[2021-09-13 04:17] LABS: Basophils % 0.2 % (0.0-0.8); Eosinophils # 0.1 10*3/uL (0.0-0.87); Eosinophils % 0.7 % (0.00-10.9); Hematocrit 23.2 VOL% (42.0-52.0); Hemoglobin 7.3 GM/DL (14.0-18.0); Immature Granulocytes % 6.4 %; Immature Granulocytes Absolute 0.81 #; Lymphocytes # 1.5 10*3/uL (1.4-4.0); Lymphocytes % 12.1 % (21.2-54.2); Mean Corpuscular HGB Conc 31.5 GM/DL (32-36); Mean Corpuscular Volume 93.5 FL (87-102); Mean Platelet Volume 9.1 FL (9.6-12.0); Monocytes % 7.5 % (1.7-12.7); NRBC # 0.13 10*3/uL; Neutrophils % 73.1 % (38.7-73.9); Platelet Count 165 T/CUMM (130-400); Red Blood Count 2.48 MC/CUMM (3.8-5.5); Red Cell Distribution Width 14.9 % (9.3-17.3); White Blood Count 12.7 T/CUMM (4-12)
[2021-09-13 04:30] LABS: Calcium 7.9 MG/DL (8.5-10.1); Osmolality,Calculated 289.3 MOS/KG (273-304); Potassium 4.6 MMOL/L (3.5-5.1)
[2021-09-13 04:35] LABS: Band Neutrophils 3 % (0-10); Eosinophils 2 % (0-10); Hypochromia Slight; Lymphocytes 17 % (20-55); Nucleated Red Blood Cells 3 (0-5); Platelet Estimate Adequate; Total Cells Counted 100
[2021-09-13] MEDS: DORNASE ALFA 2.5 MG/2.5 ML VIAL RESP TX SCH ×2 (07:07→19:20)
[2021-09-13] MEDS ORDERED: FUROSEMIDE 40 MG/4 ML VIAL IV ONE (07:45)
[2021-09-13] MEDS: HYDROmorphone PCA 30 MG/30 ML SYRINGE IV SCH ×2 (09:05→12:36)
[2021-09-13] MEDS: FLUCONAZOLE 200 MG TABLET PO SCH (09:17)
[2021-09-13] MEDS: MONTELUKAST 10 MG TABLET PO SCH (09:17)
[2021-09-13] MEDS: ALPRAZolam 0.25 MG TABLET PO PRN (09:18)
[2021-09-13] MEDS: SENNA 8.6 MG TABLET PO SCH ×2 (09:18→20:24)
[2021-09-13] MEDS: ASPIRIN EC 81 MG TABLET PO SCH (09:18)
[2021-09-13] MEDS: DOCUSATE SODIUM 100 MG CAPSULE PO SCH ×2 (09:18→20:24)
[2021-09-13] MEDS: AMITRIPTYLINE 50 MG TABLET PO SCH ×2 (09:18→20:24)
[2021-09-13] MEDS: GABAPENTIN 300 MG CAPSULE PO SCH ×2 (09:18→20:24)
[2021-09-13] MEDS: MEROPENEM 500 MG in SODIUM CHLORIDE 0.9% 100 ML IV SCH ×3 (09:19→22:32)
[2021-09-13] MEDS: INSULIN REGULAR 100 UNIT/ML SUBCUT SCH ×4 (09:22→20:04)
[2021-09-13] MEDS: PANTOPRAZOLE 40 MG VIAL IV SCH (09:22)
[2021-09-13] MEDS: LIDOCAINE 5% PATCH TRANSDERM SCH (09:28)
[2021-09-13] MEDS: SODIUM CHLORIDE 0.9% 1,000 ML IV SCH (09:36)
[2021-09-13] MEDS ORDERED: LACTULOSE 20 GM/30 ML UDCUP PO ONE (12:00)
[2021-09-13] MEDS ORDERED: METHYLNALTREXONE 12 MG/0.6 ML VIAL SUBCUT ONE (12:30)
[2021-09-13 16:19] LABS: Hematocrit 28.1 VOL% (42.0-52.0)
[2021-09-13] MEDS: guaiFENesin/CODEINE 5 ML LIQUID PO PRN ×2 (16:40→20:24)
[2021-09-13] MEDS ORDERED: ACETAMINOPHEN INJ 1,000 MG/100 ML VIAL IV ONE (18:40)
[2021-09-14] MEDS: ALBUMIN 25% 25 GM/100 ML VIAL IV SCH ×2 (00:30→08:08)
[2021-09-14] MEDS: guaiFENesin/CODEINE 5 ML LIQUID PO PRN ×2 (03:12→21:21)
[2021-09-14] MEDS: ALPRAZolam 0.25 MG TABLET PO PRN (03:26)
[2021-09-14 03:48] LABS: Basophils % 0.3 % (0.0-0.8); Eosinophils # 0.2 10*3/uL (0.0-0.87); Eosinophils % 1.9 % (0.00-10.9); Hematocrit 26.3 VOL% (42.0-52.0); Immature Granulocytes % 5.6 %; Immature Granulocytes Absolute 0.51 #; Lymphocytes # 1.2 10*3/uL (1.4-4.0); Lymphocytes % 12.6 % (21.2-54.2); Mean Corpuscular HGB Conc 30.4 GM/DL (32-36); Mean Platelet Volume 9.4 FL (9.6-12.0); Monocytes # 0.8 10*3/uL (0.11-0.8); Monocytes % 8.3 % (1.7-12.7); NRBC # 0.07 10*3/uL; Neutrophils % 71.3 % (38.7-73.9); Platelet Count 145 T/CUMM (130-400); Red Blood Count 2.74 MC/CUMM (3.8-5.5); White Blood Count 9.2 T/CUMM (4-12)
[2021-09-14] MEDS: ALBUTEROL/IPRATROPIUM 3 ML NEB RESP TX SCH ×6 (04:00→23:50)
[2021-09-14 04:03] LABS: Calcium 8.2 MG/DL (8.5-10.1); Osmolality,Calculated 283.4 MOS/KG (273-304); Potassium 4.2 MMOL/L (3.5-5.1)
[2021-09-14 04:15] LABS: Eosinophils 3 % (0-10); Lymphocytes 21 % (20-55); Platelet Estimate Adequate; Total Cells Counted 100
[2021-09-14 04:16] LABS: Hypochromia Slight; Microcytosis Slight
[2021-09-14] MEDS: MEROPENEM 500 MG in SODIUM CHLORIDE 0.9% 100 ML IV SCH ×3 (05:55→23:20)
[2021-09-14] MEDS: DORNASE ALFA 2.5 MG/2.5 ML VIAL RESP TX SCH ×2 (07:26→19:20)
[2021-09-14] MEDS: INSULIN REGULAR 100 UNIT/ML SUBCUT SCH ×4 (08:06→21:23)
[2021-09-14] MEDS: LIDOCAINE 5% PATCH TRANSDERM SCH (08:07)
[2021-09-14] MEDS: PANTOPRAZOLE 40 MG VIAL IV SCH (08:08)
[2021-09-14] MEDS: FLUCONAZOLE 200 MG TABLET PO SCH (08:08)
[2021-09-14] MEDS: DOCUSATE SODIUM 100 MG CAPSULE PO SCH ×2 (08:09→21:23)
[2021-09-14] MEDS: GABAPENTIN 300 MG CAPSULE PO SCH ×2 (08:09→21:22)
[2021-09-14] MEDS: AMITRIPTYLINE 50 MG TABLET PO SCH ×2 (08:09→21:22)
[2021-09-14] MEDS: ASPIRIN EC 81 MG TABLET PO SCH (08:09)
[2021-09-14] MEDS: MONTELUKAST 10 MG TABLET PO SCH (08:09)
[2021-09-14] MEDS: SENNA 8.6 MG TABLET PO SCH ×2 (08:09→21:22)
[2021-09-14 10:30] LABS: Basophils % 0.1 % (0.0-0.8); Eosinophils # 0.2 10*3/uL (0.0-0.87); Eosinophils % 1.7 % (0.00-10.9); Hematocrit 27.1 VOL% (42.0-52.0); Hemoglobin 8.4 GM/DL (14.0-18.0); Immature Granulocytes Absolute 0.36 #; Lymphocytes # 1.1 10*3/uL (1.4-4.0); Lymphocytes % 12.5 % (21.2-54.2); Mean Corpuscular Volume 95.8 FL (87-102); Mean Platelet Volume 8.9 FL (9.6-12.0); Monocytes # 0.7 10*3/uL (0.11-0.8); Monocytes % 7.7 % (1.7-12.7); NRBC # 0.06 10*3/uL; Platelet Count 140 T/CUMM (130-400); Red Blood Count 2.83 MC/CUMM (3.8-5.5); Red Cell Distribution Width 14.9 % (9.3-17.3); White Blood Count 8.9 T/CUMM (4-12)
[2021-09-14 10:40] LABS: INR 0.9; PT Patient Result 10.3 SECS (10.5-12.0)
[2021-09-14] MEDS ORDERED: SODIUM CHLORIDE 0.9% 1,000 ML IV PRN (11:53)
[2021-09-14] MEDS: HYDROmorphone PCA 30 MG/30 ML SYRINGE IV SCH (13:49)
[2021-09-14] MEDS: SODIUM CHLORIDE 0.9% 1,000 ML IV SCH (13:50)
[2021-09-14] MEDS ORDERED: FUROSEMIDE 40 MG/4 ML VIAL IV PRN (14:00)
[2021-09-14 20:17] LABS: Basophils % 0.4 % (0.0-0.8); Eosinophils # 0.2 10*3/uL (0.0-0.87); Eosinophils % 1.9 % (0.00-10.9); Hematocrit 32.3 VOL% (42.0-52.0); Hemoglobin 10.3 GM/DL (14.0-18.0); Immature Granulocytes % 4.2 %; Immature Granulocytes Absolute 0.44 #; Lymphocytes # 1.1 10*3/uL (1.4-4.0); Lymphocytes % 10.7 % (21.2-54.2); Mean Corpuscular HGB Conc 31.9 GM/DL (32-36); Mean Corpuscular Volume 91.8 FL (87-102); Mean Platelet Volume 9.1 FL (9.6-12.0); Monocytes # 0.7 10*3/uL (0.11-0.8); NRBC # 0.06 10*3/uL; Neutrophils % 75.8 % (38.7-73.9); Platelet Count 141 T/CUMM (130-400); Red Blood Count 3.52 MC/CUMM (3.8-5.5); Red Cell Distribution Width 16.9 % (9.3-17.3); White Blood Count 10.4 T/CUMM (4-12)
[2021-09-14] MEDS: FAMOTIDINE 20 MG/2 ML VIAL IV SCH (21:23)
[2021-09-15] MEDS: ALBUTEROL/IPRATROPIUM 3 ML NEB RESP TX SCH ×5 (03:55→23:04)
[2021-09-15 05:21] LABS: Basophils % 0.3 % (0.0-0.8); Eosinophils # 0.3 10*3/uL (0.0-0.87); Eosinophils % 2.5 % (0.00-10.9); Hematocrit 30.7 VOL% (42.0-52.0); Hemoglobin 9.8 GM/DL (14.0-18.0); Immature Granulocytes % 3.8 %; Immature Granulocytes Absolute 0.37 #; Lymphocytes # 1.1 10*3/uL (1.4-4.0); Lymphocytes % 11.2 % (21.2-54.2); Mean Corpuscular HGB Conc 31.9 GM/DL (32-36); Mean Corpuscular Volume 90.8 FL (87-102); Mean Platelet Volume 9.2 FL (9.6-12.0); Monocytes # 0.8 10*3/uL (0.11-0.8); Monocytes % 7.7 % (1.7-12.7); NRBC # 0.05 10*3/uL; Neutrophils % 74.5 % (38.7-73.9); Platelet Count 139 T/CUMM (130-400); Red Blood Count 3.38 MC/CUMM (3.8-5.5); Red Cell Distribution Width 16.9 % (9.3-17.3); White Blood Count 9.8 T/CUMM (4-12)
[2021-09-15 05:39] LABS: Calcium 8.9 MG/DL (8.5-10.1); Osmolality,Calculated 280.5 MOS/KG (273-304); Potassium 4.1 MMOL/L (3.5-5.1)
[2021-09-15] MEDS: DORNASE ALFA 2.5 MG/2.5 ML VIAL RESP TX SCH ×2 (07:44→19:33)
[2021-09-15] MEDS: MEROPENEM 500 MG in SODIUM CHLORIDE 0.9% 100 ML IV SCH ×3 (07:56→23:44)
[2021-09-15] MEDS: FAMOTIDINE 20 MG/2 ML VIAL IV SCH ×2 (08:01→20:30)
[2021-09-15] MEDS: AMITRIPTYLINE 50 MG TABLET PO SCH ×2 (08:02→20:31)
[2021-09-15] MEDS: MONTELUKAST 10 MG TABLET PO SCH (08:02)
[2021-09-15] MEDS: DOCUSATE SODIUM 100 MG CAPSULE PO SCH ×2 (08:02→20:31)
[2021-09-15] MEDS: ASPIRIN EC 81 MG TABLET PO SCH (08:02)
[2021-09-15] MEDS: FLUCONAZOLE 200 MG TABLET PO SCH (08:03)
[2021-09-15] MEDS: SENNA 8.6 MG TABLET PO SCH ×2 (08:03→20:31)
[2021-09-15] MEDS: GABAPENTIN 300 MG CAPSULE PO SCH ×2 (08:03→20:31)
[2021-09-15] MEDS: INSULIN REGULAR 100 UNIT/ML SUBCUT SCH ×4 (08:42→20:36)
[2021-09-15] MEDS: LIDOCAINE 5% PATCH TRANSDERM SCH (08:42)
[2021-09-15] MEDS ORDERED: FUROSEMIDE 20 MG/2 ML VIAL IV ONE (09:00)
[2021-09-15] MEDS: SODIUM CHLORIDE 0.9% 1,000 ML IV SCH (16:53)
[2021-09-15] MEDS: HYDROmorphone PCA 30 MG/30 ML SYRINGE IV SCH (19:08)
[2021-09-15] MEDS ORDERED: NYSTATIN 500,000 UNIT/5 ML UDCUP SWISH/SWAL SCH (21:00)
[2021-09-15] MEDS: ALPRAZolam 0.25 MG TABLET PO PRN (21:38)
[2021-09-16 04:54] LABS: Basophils % 0.2 % (0.0-0.8); Eosinophils # 0.2 10*3/uL (0.0-0.87); Eosinophils % 2.4 % (0.00-10.9); Hematocrit 32.2 VOL% (42.0-52.0); Immature Granulocytes % 3.1 %; Immature Granulocytes Absolute 0.27 #; Lymphocytes # 0.8 10*3/uL (1.4-4.0); Lymphocytes % 9.5 % (21.2-54.2); Mean Corpuscular HGB Conc 31.1 GM/DL (32-36); Mean Corpuscular Volume 92.5 FL (87-102); Mean Platelet Volume 8.8 FL (9.6-12.0); Monocytes # 0.6 10*3/uL (0.11-0.8); Monocytes % 6.9 % (1.7-12.7); Neutrophils % 77.9 % (38.7-73.9); Platelet Count 123 T/CUMM (130-400); Red Blood Count 3.48 MC/CUMM (3.8-5.5); Red Cell Distribution Width 16.5 % (9.3-17.3); White Blood Count 8.7 T/CUMM (4-12)
[2021-09-16 05:06] LABS: Calcium 7.8 MG/DL (8.5-10.1); Osmolality,Calculated 282.4 MOS/KG (273-304); Potassium 3.8 MMOL/L (3.5-5.1)
[2021-09-16] MEDS: ALBUTEROL/IPRATROPIUM 3 ML NEB RESP TX SCH ×3 (06:42→23:55)
[2021-09-16] MEDS: DORNASE ALFA 2.5 MG/2.5 ML VIAL RESP TX SCH ×2 (06:42→20:02)
[2021-09-16] MEDS: MEROPENEM 500 MG in SODIUM CHLORIDE 0.9% 100 ML IV SCH ×3 (08:25→23:05)
[2021-09-16] MEDS: MONTELUKAST 10 MG TABLET PO SCH (08:26)
[2021-09-16] MEDS: GABAPENTIN 300 MG CAPSULE PO SCH ×2 (08:26→20:39)
[2021-09-16] MEDS: AMITRIPTYLINE 50 MG TABLET PO SCH ×2 (08:27→20:39)
[2021-09-16] MEDS: ASPIRIN EC 81 MG TABLET PO SCH (08:27)
[2021-09-16] MEDS: DOCUSATE SODIUM 100 MG CAPSULE PO SCH ×2 (08:27→20:39)
[2021-09-16] MEDS: INSULIN REGULAR 100 UNIT/ML SUBCUT SCH ×4 (09:26→21:01)
[2021-09-16] MEDS ORDERED: FUROSEMIDE 40 MG/4 ML VIAL IV ONE (09:27)
[2021-09-16] MEDS: LIDOCAINE 5% PATCH TRANSDERM SCH (09:32)
[2021-09-16] MEDS: PANTOPRAZOLE 40 MG TABLET PO SCH (09:54)
[2021-09-16] MEDS: SENNA 8.6 MG TABLET PO SCH ×2 (09:55→20:39)
[2021-09-16] MEDS: guaiFENesin/CODEINE 5 ML LIQUID PO PRN (13:01)
[2021-09-16] MEDS: MYLANTA/LIDO VISC/NYST 180 ML BOTTLE SWISH/SPIT SCH ×3 (13:03→21:02)
[2021-09-16] MEDS: HYDROmorphone PCA 30 MG/30 ML SYRINGE IV SCH (13:06)
[2021-09-17 03:36] LABS: Basophils % 0.3 % (0.0-0.8); Eosinophils # 0.2 10*3/uL (0.0-0.87); Hematocrit 32.2 VOL% (42.0-52.0); Hemoglobin 10.1 GM/DL (14.0-18.0); Immature Granulocytes % 3.4 %; Immature Granulocytes Absolute 0.26 #; Lymphocytes % 12.5 % (21.2-54.2); Mean Corpuscular HGB Conc 31.4 GM/DL (32-36); Mean Corpuscular Volume 91.5 FL (87-102); Mean Platelet Volume 8.9 FL (9.6-12.0); Monocytes # 0.7 10*3/uL (0.11-0.8); Monocytes % 9.2 % (1.7-12.7); Neutrophils % 71.6 % (38.7-73.9); Platelet Count 116 T/CUMM (130-400); Red Blood Count 3.52 MC/CUMM (3.8-5.5); Red Cell Distribution Width 15.9 % (9.3-17.3); White Blood Count 7.7 T/CUMM (4-12)
[2021-09-17 04:02] VITALS: BP 121/74
[2021-09-17 04:05] LABS: Calcium 8.4 MG/DL (8.5-10.1); Osmolality,Calculated 281.5 MOS/KG (273-304); Potassium 3.8 MMOL/L (3.5-5.1)
[2021-09-17] MEDS: MEROPENEM 500 MG in SODIUM CHLORIDE 0.9% 100 ML IV SCH ×3 (06:04→23:19)
[2021-09-17] MEDS: ALBUTEROL/IPRATROPIUM 3 ML NEB RESP TX SCH ×3 (07:35→23:56)
[2021-09-17] MEDS: DORNASE ALFA 2.5 MG/2.5 ML VIAL RESP TX SCH (07:35)
[2021-09-17] MEDS: GABAPENTIN 300 MG CAPSULE PO SCH ×2 (08:11→21:14)
[2021-09-17] MEDS: DOCUSATE SODIUM 100 MG CAPSULE PO SCH ×2 (08:11→21:14)
[2021-09-17] MEDS: ASPIRIN EC 81 MG TABLET PO SCH (08:11)
[2021-09-17] MEDS: PANTOPRAZOLE 40 MG TABLET PO SCH (08:11)
[2021-09-17] MEDS: AMITRIPTYLINE 50 MG TABLET PO SCH ×2 (08:11→21:14)
[2021-09-17] MEDS: MONTELUKAST 10 MG TABLET PO SCH (08:11)
[2021-09-17] MEDS: SENNA 8.6 MG TABLET PO SCH ×2 (08:12→21:14)
[2021-09-17] MEDS: MYLANTA/LIDO VISC/NYST 180 ML BOTTLE SWISH/SPIT SCH ×4 (08:14→21:44)
[2021-09-17] MEDS: INSULIN REGULAR 100 UNIT/ML SUBCUT SCH ×4 (08:15→21:30)
[2021-09-17] MEDS: LIDOCAINE 5% PATCH TRANSDERM SCH (10:10)
[2021-09-17] MEDS: HYDROmorphone PCA 30 MG/30 ML SYRINGE IV SCH (12:56)
[2021-09-17] MEDS: METOPROLOL TARTRATE 25 MG TABLET PO SCH ×2 (18:31→21:44)
[2021-09-17 19:11] LABS: HIT Interpretation Negative (Negative)
[2021-09-17] MEDS: guaiFENesin/CODEINE 5 ML LIQUID PO PRN (21:19)
[2021-09-18 05:33] LABS: Basophils % 0.2 % (0.0-0.8); Eosinophils # 0.2 10*3/uL (0.0-0.87); Eosinophils % 3.2 % (0.00-10.9); Hematocrit 32.7 VOL% (42.0-52.0); Immature Granulocytes % 2.3 %; Immature Granulocytes Absolute 0.15 #; Lymphocytes # 0.9 10*3/uL (1.4-4.0); Lymphocytes % 14.1 % (21.2-54.2); Mean Corpuscular HGB Conc 30.6 GM/DL (32-36); Mean Corpuscular Volume 91.9 FL (87-102); Mean Platelet Volume 8.6 FL (9.6-12.0); Monocytes # 0.7 10*3/uL (0.11-0.8); Monocytes % 11.3 % (1.7-12.7); Neutrophils % 68.9 % (38.7-73.9); Platelet Count 103 T/CUMM (130-400); Red Blood Count 3.56 MC/CUMM (3.8-5.5); Red Cell Distribution Width 15.7 % (9.3-17.3); White Blood Count 6.5 T/CUMM (4-12)
[2021-09-18 05:53] LABS: Calcium 8.7 MG/DL (8.5-10.1); Osmolality,Calculated 284.3 MOS/KG (273-304); Potassium 3.9 MMOL/L (3.5-5.1)
[2021-09-18] MEDS: MEROPENEM 500 MG in SODIUM CHLORIDE 0.9% 100 ML IV SCH (06:20)
[2021-09-18] MEDS: ALBUTEROL/IPRATROPIUM 3 ML NEB RESP TX SCH ×3 (07:03→23:37)
[2021-09-18] MEDS: INSULIN REGULAR 100 UNIT/ML SUBCUT SCH ×2 (08:37→11:23)
[2021-09-18] MEDS: SPIRONOLACTONE 25 MG TABLET PO SCH (09:30)
[2021-09-18] MEDS: GABAPENTIN 300 MG CAPSULE PO SCH ×2 (09:30→20:24)
[2021-09-18] MEDS: DOCUSATE SODIUM 100 MG CAPSULE PO SCH ×2 (09:30→20:24)
[2021-09-18] MEDS: ASPIRIN EC 81 MG TABLET PO SCH (09:30)
[2021-09-18] MEDS: METOPROLOL TARTRATE 25 MG TABLET PO SCH ×2 (09:30→20:24)
[2021-09-18] MEDS: MONTELUKAST 10 MG TABLET PO SCH (09:31)
[2021-09-18] MEDS: MYLANTA/LIDO VISC/NYST 180 ML BOTTLE SWISH/SPIT SCH ×4 (09:31→20:24)
[2021-09-18] MEDS: AMITRIPTYLINE 50 MG TABLET PO SCH ×2 (09:31→20:24)
[2021-09-18] MEDS: SENNA 8.6 MG TABLET PO SCH ×2 (10:01→20:24)
[2021-09-18] MEDS: LIDOCAINE 5% PATCH TRANSDERM SCH (10:01)
[2021-09-19 05:02] LABS: Basophils % 0.2 % (0.0-0.8); Eosinophils # 0.2 10*3/uL (0.0-0.87); Eosinophils % 3.8 % (0.00-10.9); Hemoglobin 10.1 GM/DL (14.0-18.0); Immature Granulocytes % 1.4 %; Immature Granulocytes Absolute 0.08 #; Lymphocytes # 0.9 10*3/uL (1.4-4.0); Lymphocytes % 16.2 % (21.2-54.2); Mean Corpuscular HGB Conc 31.6 GM/DL (32-36); Mean Corpuscular Volume 90.7 FL (87-102); Mean Platelet Volume 8.7 FL (9.6-12.0); Monocytes # 0.7 10*3/uL (0.11-0.8); Monocytes % 12.3 % (1.7-12.7); Neutrophils % 66.1 % (38.7-73.9); Platelet Count 103 T/CUMM (130-400); Red Blood Count 3.53 MC/CUMM (3.8-5.5); Red Cell Distribution Width 15.8 % (9.3-17.3); White Blood Count 5.6 T/CUMM (4-12)
[2021-09-19 05:18] LABS: Calcium 8.6 MG/DL (8.5-10.1); Osmolality,Calculated 287.1 MOS/KG (273-304); Potassium 3.8 MMOL/L (3.5-5.1)
[2021-09-19] MEDS: ALBUTEROL/IPRATROPIUM 3 ML NEB RESP TX SCH (06:55)
[2021-09-19] MEDS ORDERED: FUROSEMIDE 40 MG/4 ML VIAL IV ONE (07:44)
[2021-09-19] MEDS: SPIRONOLACTONE 25 MG TABLET PO SCH (08:28)
[2021-09-19] MEDS: DOCUSATE SODIUM 100 MG CAPSULE PO SCH (08:28)
[2021-09-19] MEDS: ASPIRIN EC 81 MG TABLET PO SCH (08:28)
[2021-09-19] MEDS: AMITRIPTYLINE 50 MG TABLET PO SCH (08:29)
[2021-09-19] MEDS: GABAPENTIN 300 MG CAPSULE PO SCH (08:29)
[2021-09-19] MEDS: MONTELUKAST 10 MG TABLET PO SCH (08:29)
[2021-09-19] MEDS: SENNA 8.6 MG TABLET PO SCH (08:29)
[2021-09-19] MEDS: METOPROLOL TARTRATE 25 MG TABLET PO SCH (08:29)
[2021-09-19] MEDS: MYLANTA/LIDO VISC/NYST 180 ML BOTTLE SWISH/SPIT SCH ×2 (08:34→12:03)
[2021-09-19] MEDS: LIDOCAINE 5% PATCH TRANSDERM SCH (09:17)
== END 2021-09-19 11:48 | disposition home or self-care (01) | DRG 963 ==
LOC: N.ED 19:46 → N.EDINP 19:46 → N.TELES 23:39 → SUATTDRO 09-04 08:40 → N.CC 09-11 15:22
PROVIDERS: ADMIT Family Medicine; ATTEND Internal Medicine

== ENCOUNTER 2022-05-03 09:49 | Inpatient (IN) ==
[2022-05-03 10:35] LABS: Basophils # 0.1 10*3/uL (0.0-0.2); Basophils % 1.1 % (0.0-0.8); Eosinophils # 0.3 10*3/uL (0.0-0.87); Eosinophils % 2.8 % (0.00-10.9); Hematocrit 50.2 VOL% (42.0-52.0); Immature Granulocytes % 5.1 %; Immature Granulocytes Absolute 0.49 #; Lymphocytes # 1.2 10*3/uL (1.4-4.0); Lymphocytes % 12.6 % (21.2-54.2); Mean Corpuscular HGB Conc 31.9 GM/DL (32-36); Mean Platelet Volume 8.7 FL (9.6-12.0); Monocytes # 0.8 10*3/uL (0.11-0.8); Monocytes % 7.9 % (1.7-12.7); NRBC # 0.06 10*3/uL; Neutrophils % 70.5 % (38.7-73.9); Platelet Count 206 T/CUMM (130-400); Red Blood Count 5.77 MC/CUMM (3.8-5.5); Red Cell Distribution Width 15.6 % (9.3-17.3); White Blood Count 9.7 T/CUMM (4-12)
[2022-05-03] MEDS ORDERED: HYDROmorphone 1 MG/1 ML SYRINGE IV STA ×2 (10:44→13:07)
[2022-05-03] MEDS ORDERED: ONDANSETRON 4 MG/2 ML VIAL IV STA (10:44)
[2022-05-03] MEDS ORDERED: methylPREDNISolone SOD SUC 125 MG/2 ML VIAL IV STA (10:44)
[2022-05-03] MEDS ORDERED: ALBUTEROL NEB SOLN 5 MG/ML 20 ML/BOTTLE CONT NEB STA (10:44)
[2022-05-03 10:49] LABS: Albumin 3.3 G/DL (3.4-5.0); Bilirubin,Total 0.7 MG/DL (0.20-1.00); Calcium 9.2 MG/DL (8.5-10.1); Osmolality,Calculated 282.3 MOS/KG (273-304); Potassium 4.5 MMOL/L (3.5-5.1); Total Protein 6.3 G/DL (6.4-8.2)
[2022-05-03] MEDS ORDERED: ALBUTEROL 2.5 MG/3 ML NEB RESP TX ONE (10:53)
[2022-05-03 11:02] LABS: Anisocytosis 1+; Band Neutrophils 1 % (0-10); Eosinophils 3 % (0-10); Lymphocytes 18 % (20-55); Platelet Estimate Normal; Total Cells Counted 100
[2022-05-03 11:03] LABS: Macrocytosis Slight
[2022-05-03] MEDS ORDERED: ENOXAPARIN 120 MG/0.8 ML SYRINGE SUBCUT STA (13:12)
[2022-05-03] MEDS ORDERED: SODIUM CHLORIDE 0.9% 1,000 ML IV STA (13:13)
[2022-05-03] MEDS ORDERED: hydrALAZINE 20 MG/1 ML VIAL IV PRN (13:57)
[2022-05-03] MEDS ORDERED: ONDANSETRON 4 MG/2 ML VIAL IV PRN (13:57)
[2022-05-03] MEDS ORDERED: ACETAMINOPHEN 325 MG TABLET PO PRN (13:57)
[2022-05-03] MEDS: LEVALBUTEROL 1.25 MG/3 ML NEB RESP TX SCH ×2 (15:30→19:25)
[2022-05-03] MEDS: methylPREDNISolone SOD SUC 125 MG/2 ML VIAL IV SCH (18:42)
[2022-05-03] MEDS: MORPHINE 2 MG/1 ML SYRINGE IV PRN (19:23)
[2022-05-03] MEDS ORDERED: TEMAZEPAM 15 MG CAPSULE PO PRN (21:00)
[2022-05-03] MEDS: METOPROLOL TARTRATE 50 MG TABLET PO SCH (21:12)
[2022-05-03] MEDS: GABAPENTIN 300 MG CAPSULE PO SCH (21:12)
[2022-05-04] MEDS: LEVALBUTEROL 1.25 MG/3 ML NEB RESP TX SCH ×6 (00:15→19:55)
[2022-05-04] MEDS: MORPHINE 2 MG/1 ML SYRINGE IV PRN (02:54)
[2022-05-04] MEDS: methylPREDNISolone SOD SUC 125 MG/2 ML VIAL IV SCH ×3 (03:03→17:42)
[2022-05-04 05:25] LABS: Basophils # 0.1 10*3/uL (0.0-0.2); Basophils % 0.5 % (0.0-0.8); Eosinophils % 0.1 % (0.00-10.9); Hematocrit 48.5 VOL% (42.0-52.0); Hemoglobin 14.9 GM/DL (14.0-18.0); Immature Granulocytes % 5.3 %; Immature Granulocytes Absolute 0.88 #; Lymphocytes # 0.9 10*3/uL (1.4-4.0); Lymphocytes % 5.6 % (21.2-54.2); Mean Corpuscular HGB Conc 30.7 GM/DL (32-36); Mean Corpuscular Volume 88.8 FL (87-102); Monocytes # 0.3 10*3/uL (0.11-0.8); Monocytes % 1.8 % (1.7-12.7); NRBC # 0.02 10*3/uL; Neutrophils % 86.7 % (38.7-73.9); Platelet Count 226 T/CUMM (130-400); Red Blood Count 5.46 MC/CUMM (3.8-5.5); Red Cell Distribution Width 15.6 % (9.3-17.3); White Blood Count 16.5 T/CUMM (4-12)
[2022-05-04 05:54] LABS: Band Neutrophils 3 % (0-10); Lymphocytes 4 % (20-55); Platelet Estimate Adequate; Total Cells Counted 100
[2022-05-04 06:05] LABS: Calcium 9.4 MG/DL (8.5-10.1); Potassium 4.8 MMOL/L (3.5-5.1); Thyroid Stimulating Hormone 0.702 uIU/ml (0.358-3.74)
[2022-05-04] MEDS: PANTOPRAZOLE 40 MG TABLET PO SCH (09:29)
[2022-05-04] MEDS: ENOXAPARIN 40 MG/0.4 ML SYRINGE SUBCUT SCH (09:29)
[2022-05-04] MEDS: MONTELUKAST 10 MG TABLET PO SCH (09:29)
[2022-05-04] MEDS: CETIRIZINE 10 MG TABLET PO SCH (09:29)
[2022-05-04] MEDS: ASPIRIN EC 81 MG TABLET PO SCH (09:30)
[2022-05-04] MEDS: SPIRONOLACTONE 25 MG TABLET PO SCH (09:30)
[2022-05-04] MEDS: METOPROLOL TARTRATE 50 MG TABLET PO SCH ×2 (09:30→20:58)
[2022-05-04] MEDS: HYDROmorphone 1 MG/1 ML SYRINGE IV PRN ×3 (09:31→18:40)
[2022-05-04] MEDS: [UNRECOGNIZED DRUG - OTHER] INH SCH (09:38)
[2022-05-04] MEDS: FLUTICASONE FUROATE VILANTEROL INH SCH (09:38)
[2022-05-04] MEDS ORDERED: BENZONATATE 100 MG CAPSULE PO PRN (10:21)
[2022-05-04] MEDS ORDERED: BUPIVACAINE 0.5% 50 ML VIAL NERVEBLOCK STA (16:09)
[2022-05-04] MEDS: GABAPENTIN 300 MG CAPSULE PO SCH (20:58)
[2022-05-05] MEDS: HYDROmorphone 1 MG/1 ML SYRINGE IV PRN ×4 (00:09→22:20)
[2022-05-05] MEDS: LEVALBUTEROL 1.25 MG/3 ML NEB RESP TX SCH ×6 (00:29→19:50)
[2022-05-05] MEDS: methylPREDNISolone SOD SUC 125 MG/2 ML VIAL IV SCH ×2 (02:16→09:55)
[2022-05-05 05:18] LABS: Basophils # 0.1 10*3/uL (0.0-0.2); Basophils % 0.3 % (0.0-0.8); Eosinophils % 0.1 % (0.00-10.9); Immature Granulocytes % 4.9 %; Immature Granulocytes Absolute 1.07 #; Lymphocytes # 0.9 10*3/uL (1.4-4.0); Lymphocytes % 4.3 % (21.2-54.2); Mean Corpuscular HGB Conc 30.6 GM/DL (32-36); Mean Corpuscular Volume 90.2 FL (87-102); Mean Platelet Volume 8.8 FL (9.6-12.0); Monocytes % 4.4 % (1.7-12.7); NRBC # 0.04 10*3/uL; Platelet Count 248 T/CUMM (130-400); Red Blood Count 5.43 MC/CUMM (3.8-5.5); White Blood Count 21.7 T/CUMM (4-12)
[2022-05-05 05:41] LABS: Calcium 9.4 MG/DL (8.5-10.1); Osmolality,Calculated 288.3 MOS/KG (273-304); Potassium 5.1 MMOL/L (3.5-5.1)
[2022-05-05 05:46] LABS: Lymphocytes 2 % (20-55); Platelet Estimate Adequate; Total Cells Counted 100
[2022-05-05] MEDS: ASPIRIN EC 81 MG TABLET PO SCH (09:54)
[2022-05-05] MEDS: PANTOPRAZOLE 40 MG TABLET PO SCH (09:54)
[2022-05-05] MEDS: ENOXAPARIN 40 MG/0.4 ML SYRINGE SUBCUT SCH (09:54)
[2022-05-05] MEDS: FLUTICASONE FUROATE VILANTEROL INH SCH (09:54)
[2022-05-05] MEDS: TERAZOSIN 1 MG CAPSULE PO SCH (09:54)
[2022-05-05] MEDS: [UNRECOGNIZED DRUG - OTHER] INH SCH (09:54)
[2022-05-05] MEDS: SPIRONOLACTONE 25 MG TABLET PO SCH (09:54)
[2022-05-05] MEDS: METOPROLOL TARTRATE 50 MG TABLET PO SCH ×2 (09:54→21:12)
[2022-05-05] MEDS: CETIRIZINE 10 MG TABLET PO SCH (09:55)
[2022-05-05] MEDS: MONTELUKAST 10 MG TABLET PO SCH (09:55)
[2022-05-05] MEDS ORDERED: methylPREDNISolone SOD SUC 40 MG/1 ML VIAL IV SCH (14:00)
[2022-05-05] MEDS ORDERED: PANTOPRAZOLE 40 MG TABLET PO SCH (16:50)
[2022-05-05] MEDS: GABAPENTIN 300 MG CAPSULE PO SCH (21:12)
[2022-05-05] MEDS: methylPREDNISolone SOD SUC 40 MG/1 ML VIAL IV SCH (21:14)
[2022-05-06] MEDS: LEVALBUTEROL 1.25 MG/3 ML NEB RESP TX SCH ×3 (01:35→12:58)
[2022-05-06] MEDS: METOPROLOL TARTRATE 50 MG TABLET PO SCH (06:11)
[2022-05-06 06:12] LABS: Osmolality,Calculated 283.5 MOS/KG (273-304); Potassium 5.1 MMOL/L (3.5-5.1)
[2022-05-06 06:47] LABS: Basophils # 0.1 10*3/uL (0.0-0.2); Basophils % 0.2 % (0.0-0.8); Hematocrit 47.9 VOL% (42.0-52.0); Hemoglobin 14.5 GM/DL (14.0-18.0); Immature Granulocytes % 4.7 %; Immature Granulocytes Absolute 0.95 #; Lymphocytes # 1.1 10*3/uL (1.4-4.0); Lymphocytes % 5.2 % (21.2-54.2); Mean Corpuscular HGB Conc 30.3 GM/DL (32-36); Mean Corpuscular Volume 89.9 FL (87-102); Mean Platelet Volume 9.2 FL (9.6-12.0); Monocytes # 1.1 10*3/uL (0.11-0.8); Monocytes % 5.5 % (1.7-12.7); NRBC # 0.04 10*3/uL; Neutrophils % 84.4 % (38.7-73.9); Platelet Count 242 T/CUMM (130-400); Red Blood Count 5.33 MC/CUMM (3.8-5.5); Red Cell Distribution Width 16.2 % (9.3-17.3); White Blood Count 20.3 T/CUMM (4-12)
[2022-05-06 06:55] LABS: Hypochromia Slight; Lymphocytes 4 % (20-55); Microcytosis Slight; Platelet Estimate Adequate; Total Cells Counted 100
[2022-05-06] MEDS ORDERED: LACTATED RINGERS 1,000 ML IV SCH (09:00)
[2022-05-06] MEDS ORDERED: FERROUS SULFATE 325 MG TABLET PO SCH (09:00)
[2022-05-06] MEDS ORDERED: DEXAMETHASONE 10 MG/1 ML VIAL ONE (09:26)
[2022-05-06] MEDS ORDERED: LIDOCAINE 1% 5 ML VIAL ONE (09:27)
[2022-05-06] MEDS ORDERED: fentaNYL 100 MCG/2 ML VIAL ONE (09:36)
[2022-05-06] MEDS ORDERED: MIDAZOLAM 2 MG/2 ML VIAL ONE ×2 (09:36→10:24)
[2022-05-06] MEDS ORDERED: propofoL 200 MG/20 ML VIAL IV ONE (09:36)
[2022-05-06] MEDS ORDERED: BUPIVACAINE 0.5% 50 ML VIAL ONE (09:54)
[2022-05-06] MEDS ORDERED: TRIAMCINOLONE ACETONIDE 40 MG/1 ML VIAL ONE (09:55)
[2022-05-06 11:17] VITALS: BP 124/84
[2022-05-06] MEDS: MONTELUKAST 10 MG TABLET PO SCH (11:26)
[2022-05-06] MEDS: TERAZOSIN 1 MG CAPSULE PO SCH (11:26)
[2022-05-06] MEDS: ASPIRIN EC 81 MG TABLET PO SCH (11:26)
[2022-05-06] MEDS: methylPREDNISolone SOD SUC 40 MG/1 ML VIAL IV SCH (11:26)
[2022-05-06] MEDS: SPIRONOLACTONE 25 MG TABLET PO SCH (11:26)
[2022-05-06] MEDS: CETIRIZINE 10 MG TABLET PO SCH (11:40)
[2022-05-06] MEDS: [UNRECOGNIZED DRUG - OTHER] INH SCH (11:40)
[2022-05-06] MEDS: FLUTICASONE FUROATE VILANTEROL INH SCH (11:40)
== END 2022-05-06 13:35 | disposition home or self-care (01) | DRG 543 ==
LOC: N.ED 09:49 → N.EDINP 13:57 → N.TELEN 16:43
PROVIDERS: ADMIT Internal Medicine Geriatric Medicine; ATTEND Internal Medicine Geriatric Medicine